=== PATIENT | male | born 1995 | race Caucasian/White ===

== ENCOUNTER 2019-06-12 11:12 | Emergency (ER) | payer OTHER ==
[~2019-06-12] VITALS: Ht 193 cm; Wt 90.7 kg
[2019-06-12] MEDS ORDERED: IBUPROFEN 600600 M1 PO (13:43)
[2019-06-12 14:00] VITALS: BP 128/86
== END 2019-06-12 14:02 | disposition home or self-care (01) ==
LOC: ER 11:12
DX: S62.522A Displaced fracture of distal phalanx of left thumb, initial encounter for closed fracture (principal); S01.511A Laceration without foreign body of lip, initial encounter; W22.8XXA Striking against or struck by other objects, initial encounter; Y93.43 Activity, gymnastics; Y92.39 Other specified sports and athletic area as the place of occurrence of the external cause; Y99.9 Unspecified external cause status